=== PATIENT | male | born 1995 | race Caucasian/White ===

== ENCOUNTER 2019-05-12 11:07 | Emergency (ER) | payer MEDICAID ==
[~2019-05-12] VITALS: Ht 175.3 cm; Wt 83.0 kg
[2019-05-12 11:38] VITALS: BP 142/76; Ht 175.3 cm; Wt 83.0 kg
== END 2019-05-12 15:11 | disposition home or self-care (01) ==
LOC: ED 11:07
DX: J40 Bronchitis, not specified as acute or chronic (principal); R04.2 Hemoptysis
CPT/HCPCS: Q0092